=== PATIENT | female | born 1945 | race Caucasian/White ===

== ENCOUNTER 2016-04-16 10:17 | Observation (INO) | payer OTHER ==
[~2016-04-16] VITALS: Ht 162.6 cm; Wt 87.4 kg
[2016-04-16 11:14] LABS: HEMATOCRIT 44.8 % (36.0-46.0); MCH 26.3 PG (29.0-34.0); MCHC 33.5 G/DL (30.0-36.0); MCV 78.5 FL (83-99); MEAN PLAT.VOLUME 8.6 uM^3 (9.5-12.4); PLATELET COUNT 359 K/uL (156-360); RBC DIS.WIDTH-CV 15.1 % (11.8-14.6); RBC DIS.WIDTH-SD 42.3 % (39-53); RED BLOOD COUNT 5.71 M/uL (3.80-5.20); WHITE BLOOD COUNT 8.6 K/uL (4.1-10.2)
[2016-04-16 11:31] LABS: CHLORIDE 99 mEq/L (99-109); POTASSIUM 3.5 mEq/L (3.7-5.4); SODIUM 137 mEq/L (136-147)
[2016-04-16 11:32] LABS: GLUCOSE 187 mg/dL (70-99)
[2016-04-16 11:34] LABS: ANION GAP 11 MEQ/L (2-14)
[2016-04-16 11:36] LABS: GFR ESTIMATE (CALCULATED) 36 mL/min/; TROP-I INTERPRETATION NEGATIVE; TROPONIN-I < 0.01 ng/mL (0.0-0.30)
[2016-04-16 11:37] LABS: UREA NITROGEN (BUN) 26 mg/dL (9-23)
[2016-04-16] MEDS ORDERED: TRAZODONE HCL150 MG PO (13:48)
[2016-04-16] MEDS ORDERED: LOSARTAN POTASS50 MG PO (13:48)
[2016-04-16] MEDS ORDERED: LOVASTATIN40 MG PO (13:48)
[2016-04-16] MEDS ORDERED: HYDROCHLOROTHIA50 MG PO (13:49)
[2016-04-16] MEDS ORDERED: ASPIR-LOW81 MG PO (13:49)
[2016-04-16] MEDS ORDERED: VITAMIN D2000 UNIT PO (13:50)
[2016-04-16] MEDS ORDERED: CYANOCOBALAM1000 MCG PO (13:51)
[2016-04-16] MEDS ORDERED: VITAMIN E400 UNIT PO (13:52)
[2016-04-16] MEDS ORDERED: VENTOLIN HFA18 GM IH (13:53)
[2016-04-16] MEDS ORDERED: ALBUTEROL2.5 MG/3 M IH (13:53)
[2016-04-16] MEDS ORDERED: METFORMIN HCL1000 MG PO (13:53)
[2016-04-16] MEDS ORDERED: K-DUR10 MEQ PO (13:54)
[2016-04-16] MEDS ORDERED: BIOTIN 5000MCG PO (13:54)
[2016-04-16] MEDS ORDERED: DULERA 200 MCG/13 GM IH (13:57)
[2016-04-16 16:22] LABS: D-DIMER ELISA 0.18 mg/L FEU (< 0.57)
[2016-04-16 16:39] VITALS: BP 118/71
[2016-04-16 18:55] VITALS: BP 119/68
[2016-04-16 20:49] LABS: TROP-I INTERPRETATION NEGATIVE; TROPONIN-I < 0.01 ng/mL (0.0-0.30)
[2016-04-16 21:36] LABS: POINT-OF-CARE METER ID UU14162513
[2016-04-17 00:30] VITALS: BP 108/51
[2016-04-17 02:41] LABS: TROP-I INTERPRETATION NEGATIVE; TROPONIN-I < 0.01 ng/mL (0.0-0.30)
[2016-04-17 05:01] VITALS: BP 100/47
[2016-04-17 06:37] LABS: INTER. NORMALIZED RATIO 1.1; PROTHROMBIN TIME 10.7 (9.2-11.2)
[2016-04-17 06:46] LABS: ANION GAP 9 MEQ/L (2-14); CHLORIDE 103 MEQ/L (99-109); GFR ESTIMATE (CALCULATED) 40 mL/min/; POTASSIUM 3.5 MEQ/L (3.7-5.4); SAMPLE HEMOLYSIS CHECK 0; SAMPLE ICTERIC CHECK 0; SAMPLE LIPEMIA CHECK 0; SODIUM 139 MEQ/L (136-147); UREA NITROGEN (BUN) 35 mg/dL (9-23)
[2016-04-17 06:47] LABS: GLUCOSE 113 mg/dL (70-99)
[2016-04-17 06:49] LABS: HEMATOCRIT 40.3 % (36.0-46.0); MCH 26.5 PG (29.0-34.0); MCHC 32.3 G/DL (30.0-36.0); MCV 82.1 FL (83-99); RBC DIS.WIDTH-CV 15.2 % (11.8-14.6); RBC DIS.WIDTH-SD 44.7 % (39-53); RED BLOOD COUNT 4.91 M/uL (3.80-5.20); WHITE BLOOD COUNT 7.3 K/uL (4.1-10.2)
[2016-04-17 07:52] VITALS: BP 111/58
[2016-04-17 08:14] LABS: MEAN PLAT.VOLUME 8.9 uM^3 (9.5-12.4)
[2016-04-17 08:26] LABS: PLATELET COUNT 246 K/uL (156-360)
[2016-04-17 11:45] VITALS: BP 94/60
[2016-04-17 12:12] LABS: POINT-OF-CARE METER ID UU13113831
== END 2016-04-17 15:03 | disposition home or self-care (01) ==
LOC: EME 10:17 → 5WEST 14:43 → EDOF 14:43 → 5WEST 16:31
PROVIDERS: Internal Medicine; Nurse Practitioner Adult Health
DX: R07.9 Chest pain, unspecified (principal); E87.6 Hypokalemia; N17.9 Acute kidney failure, unspecified; I10 Essential (primary) hypertension; E11.9 Type 2 diabetes mellitus without complications; Z79.84 Long term (current) use of oral hypoglycemic drugs; Z79.82 Long term (current) use of aspirin; Z88.0 Allergy status to penicillin; Z91.018 Allergy to other foods
CPT/HCPCS: 71020; 80048; 82948; 84484; 85027; 85379; 85610; 93005; 99202; 99281; 99285; G0378; J1815